=== PATIENT | female | born 1990 | race African-American/Black ===

== ENCOUNTER 2017-02-15 17:19 | Emergency (ER) | payer BC, MEDICAID ==
[~2017-02-15] VITALS: Ht 163.8 cm; Wt 94.0 kg
[2017-02-15 17:50] VITALS: BP 110/42
== END 2017-02-15 19:05 | disposition home or self-care (01) ==
LOC: ER 17:22
DX: J06.9 Acute upper respiratory infection, unspecified (principal); F12.10 Cannabis abuse, uncomplicated; Z89.9 Acquired absence of limb, unspecified
CPT/HCPCS: 93005; 99283

== ENCOUNTER 2017-12-27 15:12 | Emergency (ER) | payer BC, MEDICAID ==
[~2017-12-27] VITALS: Ht 154.9 cm; Wt 94.0 kg
[2017-12-27 20:09] VITALS: BP 111/84
[2017-12-27] MEDS ORDERED: VISCOUS LIDOCAINE 2% 15 ML UDC MM PRN (20:15)
[2017-12-27] MEDS ORDERED: DEXAMETHASONE 10 MG/ML VIAL IM ONE (20:15)
[2017-12-27] MEDS ORDERED: PENICILLIN G BENZATHINE 1,200,000 UNITS/2ML SYR IM ONE (20:15)
== END 2017-12-27 20:37 | disposition home or self-care (01) ==
LOC: ER 16:10
DX: J02.9 Acute pharyngitis, unspecified (principal); F17.200 Nicotine dependence, unspecified, uncomplicated; F12.10 Cannabis abuse, uncomplicated
CPT/HCPCS: 87070; 87077; 87430; 96372; 99284; J0561; J1100

== ENCOUNTER 2017-12-30 09:16 | Emergency (ER) | payer MEDICAID ==
[~2017-12-30] VITALS: Ht 162.6 cm; Wt 91.0 kg
[2017-12-30 09:19] VITALS: BP 119/79
[2017-12-30] MEDS ORDERED: PENICILLIN G BENZATHINE 1,200,000 UNITS/2ML SYR IM ONE (11:45)
== END 2017-12-30 11:52 | disposition home or self-care (01) ==
LOC: ER 09:16
DX: J02.0 Streptococcal pharyngitis (principal); H61.23 Impacted cerumen, bilateral; F17.200 Nicotine dependence, unspecified, uncomplicated; F12.10 Cannabis abuse, uncomplicated
CPT/HCPCS: 99281

== ENCOUNTER 2018-01-02 08:34 | Emergency (ER) | payer MEDICAID ==
[~2018-01-02] VITALS: Ht 162.6 cm; Wt 91.0 kg
[2018-01-02 08:47] VITALS: BP 139/85
[2018-01-02] MEDS ORDERED: ACETAMINOPHEN 325MG TABLET PO ONE (09:45)
== END 2018-01-02 12:29 | disposition home or self-care (01) ==
LOC: ER 08:34
DX: J06.9 Acute upper respiratory infection, unspecified (principal); F17.200 Nicotine dependence, unspecified, uncomplicated; F12.10 Cannabis abuse, uncomplicated; Z89.422 Acquired absence of other left toe(s)
CPT/HCPCS: 71045; 99283

== ENCOUNTER 2019-03-30 23:43 | Emergency (ER) | payer MEDICAID, OTHER ==
[~2019-03-30] VITALS: Ht 162.6 cm; Wt 123.0 kg
[2019-03-31] MEDS ORDERED: ACETAMINOPHEN 325MG TABLET PO STA (04:24)
[2019-03-31 06:31] VITALS: BP 138/89
== END 2019-03-31 06:31 | disposition home or self-care (01) ==
LOC: ER 23:43
DX: S93.401A Sprain of unspecified ligament of right ankle, initial encounter (principal); W18.39XA Other fall on same level, initial encounter; Y93.89 Activity, other specified; Y92.89 Other specified places as the place of occurrence of the external cause; Y99.8 Other external cause status
CPT/HCPCS: 73610; 73630; 81025; 99283